=== PATIENT | male | born 1990 | race African-American/Black ===

== ENCOUNTER 2016-10-29 13:01 | Emergency (ER) | payer SELFPAY ==
[~2016-10-29] VITALS: Ht 160 cm; Wt 75.0 kg
[~2016-10-29 13:01] MED LIST: PENVK500 PO
[2016-10-29 13:04] VITALS: BP 130/82; PULSE 63; RESP 15; TEMP 98.4; O2SAT 98
--- NOTE | 2016-10-29 14:11 | PD ---
HPI Chief Complaint: Respiratory Symptoms Time Seen by Provider: 13:56 Travel History International Travel<30 days: No Contact w/Intl Traveler<30days: No Traveled to known affect area: No History of Present Illness HPI 26-year-old male presents to the emergency department for evaluation and chest congestion which is causing him to be short of breath for the past week, worse in the past 2 days. He denies any fevers or chills. No chest pain. No abdominal pain. No nausea, vomiting, diarrhea. He reports no chronic medical problems and takes no prescribed medications. Patient reports mild cough. No history of DVT/PE. No hemoptysis. No leg edema. Patient states he went on a cruise to the [facility] September 25, but no other recent surgery or travel. No chest pain. No other complaints. [facility] Past Medical History Medical History: Denies Significant Hx Past Surgical History Surgical History: No Previous Surgery Social History Alcohol Use: Yes (occasionally) Tobacco Use: No Substance Use: No Allergies-Medications (Allergen,Severity, Reaction): Coded Allergies: No Known Allergies (Unverified , 10/29/16) Reported Meds & Prescriptions Reported Meds & Active Scripts Active No Active Prescriptions or Reported Medications Review of Systems Except as stated in HPI: all other systems reviewed are Neg Physical Exam Narrative GENERAL: Well-nourished, well-developed male patient, ambulatory. Afebrile. SKIN: Focused skin assessment warm/dry. HEAD: Normocephalic. Atraumatic. EYES: No scleral icterus. No injection or drainage. NECK: Supple, trachea midline. No JVD or lymphadenopathy. CARDIOVASCULAR: Regular rate and rhythm without murmurs, gallops, or rubs. RESPIRATORY: Breath sounds equal bilaterally. No accessory muscle use. Lungs sounds are clear to auscultation. GASTROINTESTINAL: Abdomen soft, non-tender, nondistended. MUSCULOSKELETAL: No cyanosis, or edema. BACK: Nontender without obvious deformity. No CVA tenderness. Data Data Last Documented VS Vital Signs Date Time Temp Pulse Resp B/P (MAP) Pulse Ox O2 Delivery O2 Flow Rate FiO2 10/29/16 13:04 98.4 63 15 130/82 (98) 98 Orders Orders Chest, Single Ap (10/29/16 ) [facility] Medical Decision Making Medical Screen Exam Complete: Yes Emergency Medical Condition: Yes Medical Record Reviewed: Yes Interpretation(s) chest x-ray - CONCLUSION: 1. No acute cardiopulmonary disease. Differential Diagnosis URI versus bronchitis versus pneumonia Narrative Course 26-year-old male presents to the emergency department for evaluation of chest congestion, cough, shortness breath for one week, worse in the past 2 days. He does appear well on exam. Chest x-ray is ordered and pending. Chest x-ray shows no acute disease. Patient will be discharged with benzonatate capsules for cough. He is to follow up with his primary care physician. He is to return for any acute, worsening of symptoms. The patient was discharged in stable condition with instructions, including return instructions and follow up instructions. Diagnosis Primary Impression: Upper respiratory infection Qualified Codes: J06.9 - Acute upper respiratory infection, unspecified Referrals: Primary Care Physician call for appointment Patient Instructions: General Instructions, Upper Respiratory Infection (ED) Additional Instructions: Take benzonatate capsules as directed as needed for cough. Follow-up with your primary care physician. Return to the emergency department for any acute worsening of symptoms. Med/Other Pt SpecificInfo: Prescription(s) given Scripts Benzonatate (Benzonatate) 200 Mg Cap 200 MG PO TID Y for COUGH, #21 CAP 0 Refills Prov: Maricruz Pagan 10/29/16 Disposition: 01 DISCHARGE HOME Condition: Stable Maricruz Pagan Oct 29, 2016 14:11
--- NOTE | 2016-10-29 15:40 | RADRPT ---
EXAM DATE/TIME: 10/29/2016 14:31 [place] COMPARISON: No previous studies available for comparison. INDICATIONS : Mucus and congestion for one week with related shortness of breath today. MEDICAL HISTORY : None. SURGICAL HISTORY : None. ENCOUNTER: Initial ACUITY: 1 week PAIN SCORE: 0/10 LOCATION: Bilateral chest FINDINGS: A single view of the chest demonstrates the lungs to be symmetrically aerated without evidence of mas s, infiltrate or effusion. The cardiomediastinal contours are unremarkable. Osseous structures are intact. CONCLUSION: 1. No acute cardiomegaly disease. Steven Patel MD on October 29, 2016 at 15:38 Board Certified Radiologist. This report was verified electronically.
[2016-10-29] MEDS ORDERED: BENZ1CAP34 PO (15:45)
== END 2016-10-29 16:47 | disposition home or self-care (01) ==
LOC: NEPC 13:01
DX: J06.9 Acute upper respiratory infection, unspecified (principal)
CPT/HCPCS: 71010; 99283

== ENCOUNTER 2016-11-05 09:54 | Emergency (ER) | payer SELFPAY ==
[~2016-11-05] VITALS: Ht 160 cm; Wt 73.0 kg
[~2016-11-05 09:54] MED LIST changes: +BENZ1CAP34 PO; -PENVK500 PO
[2016-11-05 09:56] VITALS: BP 130/74; PULSE 64; RESP 20; TEMP 97.8; O2SAT 98
[2016-11-05] MEDS ORDERED: ZOFR4TAB PO (10:17)
[2016-11-05] MEDS ORDERED: DICY10 PO (10:17)
--- NOTE | 2016-11-05 10:24 | PD ---
HPI . Abdominal pain Chief Complaint: GI Complaint Time Seen by Provider: 10:14 Travel History International Travel<30 days: No Contact w/Intl Traveler<30days: No Traveled to known affect area: No History of Present Illness HPI This patient presents with the chief complaint of mid abdominal pain which started 4 days ago. The pain comes and goes. He has not noted any modifying factors. Maximal pain is 4/10. It is associated with nausea without vomiting. No fever. No urinary tract symptoms. No diarrhea. PFSH Past Medical History Medical History: Denies Significant Hx Immunizations Current: Yes Influenza Vaccination: No Past Surgical History Surgical History: No Previous Surgery Social History Alcohol Use: Yes (occasionally) Tobacco Use: No Substance Use: No Allergies-Medications (Allergen,Severity, Reaction): Coded Allergies: No Known Allergies (Unverified , 11/05/16) Reported Meds & Prescriptions Reported Meds & Active Scripts Active Bentyl (Dicyclomine HCl) 10 Mg Cap 20 Mg PO QID Zofran (Ondansetron HCl) 4 Mg Tab 4 Mg PO Q6HR PRN Benzonatate 200 Mg Cap 200 Mg PO TID PRN Review of Systems Except as stated in HPI: all other systems reviewed are Neg General / Constitutional: No: Fever, Chills Gastrointestinal: Positive: Nausea, Abdominal Pain, No: Vomiting, Diarrhea, Constipation Genitourinary: No: Urgency, Frequency, Dysuria Physical Exam Narrative GENERAL: This is a healthy-appearing 26-year-old in no distress. SKIN: warm/dry. No rashes. HEAD: Normocephalic. Atraumatic. EYES: Pupils equal and round. No scleral icterus. No injection or drainage. ENT: No nasal bleeding or discharge. Mucous membranes pink and moist. NECK: Trachea midline. Full range of motion without pain.. CARDIOVASCULAR: Regular rate and rhythm. Heart sounds are normal. RESPIRATORY: No accessory muscle use. Clear to auscultation. Breath sounds equal bilaterally. GASTROINTESTINAL: Abdomen soft. Nontender. Bowel sounds present. Nondistended. MUSCULOSKELETAL: No obvious deformities. NEUROLOGICAL: Awake and alert. No obvious cranial nerve deficits. Motor grossly within normal limits. Normal speech. PSYCHIATRIC: Appropriate mood and affect; insight and judgment normal. Data Data Last Documented VS Vital Signs Date Time Temp Pulse Resp B/P (MAP) Pulse Ox O2 Delivery O2 Flow Rate FiO2 11/05/16 09:56 97.8 64 20 130/74 (92) 98 Room Air [facility] Medical Decision Making Medical Screen Exam Complete: Yes Emergency Medical Condition: Yes Medical Record Reviewed: Yes (patient was seen here on 10/29 with a cold. He was discharged with a prescription for Tessalon Perles.) Differential Diagnosis Differential diagnosis of abdominal pain includes but is not limited to gastritis, pancreatitis, hepatitis, gastroenteritis, gallbladder disease, constipation, urinary retention, UTI, peptic ulcer disease, diverticulitis or appendicitis Narrative Course This patient presents with a four-day history of intermittent mid abdominal pain. His exam is completely benign. The history, exam, diagnostic testing, and current condition do not suggest any significant pathology to warrant further testing, continued ED treatment, admission, or surgical evaluation at this point. The patient's condition is stable and appropriate for discharge. Diagnosis Primary Impression: Nausea Additional Impression: Abdominal pain Qualified Codes: R10.84 - Generalized abdominal pain Referrals: [facility] Patient Instructions: General Instructions, Dextrose/Fructose/Phosphoric Acid ( By mouth), Abdominal Pain (ED) Departure Forms: Tests/Procedures Additional Instructions: See your doctor if symptoms continue Scripts Dicyclomine (Bentyl) 10 Mg Cap 20 MG PO QID for Bowel Management, #12 CAP 0 Refills Prov: Malena Johnson MD 11/05/16 Ondansetron (Zofran) 4 Mg Tab 4 MG PO Q6HR Y for NAUSEA OR VOMITING, #12 TAB 0 Refills Prov: Malena Johnson MD 11/05/16 Disposition: 01 DISCHARGE HOME Condition: Stable Malena Johnson MD Nov 05, 2016 10:24
== END 2016-11-05 10:42 | disposition home or self-care (01) ==
LOC: NEPD 09:54
DX: R11.0 Nausea (principal); R10.84 Generalized abdominal pain
CPT/HCPCS: 99284